=== PATIENT | male | born 1960 | race Caucasian/White ===

== ENCOUNTER 2022-01-02 16:44 | Inpatient (IN) | payer OTHER ==
[2022-01-02 17:33] VITALS: BMI 30.2
[2022-01-02] MEDS ORDERED: NICOTINE 10 MG CARTRIDGE (INHALER) IH PRN (19:43)
[2022-01-02] MEDS ORDERED: ACETAMINOPHEN 325 MG TABLET (FP) PO PRN (19:43)
[2022-01-02] MEDS ORDERED: methaDONE HCL 10 MG TABLET (FOR DETOX USE ONLY) PO ONE (19:43)
[2022-01-02] MEDS ORDERED: cloNIDine HCL 0.1 MG TABLET PO PRN (19:43)
[2022-01-02] MEDS ORDERED: ONDANSETRON *ODT* 4 MG TABLET SL PRN (19:43)
[2022-01-02] MEDS ORDERED: MAGNESIUM HYDROX 2400MG/30ML ORAL SUSPENSION 30 ML CUP PO PRN (19:43)
[2022-01-02] MEDS ORDERED: IBUPROFEN 600 MG TABLET (FP) PO PRN (19:43)
[2022-01-02] MEDS ORDERED: MAG HYDROX/AL HYDROX/SIMETH 30 ML UNIT-DOSE CUP PO PRN (19:43)
[2022-01-02] MEDS ORDERED: DICYCLOMINE HCL 10 MG CAPSULE PO PRN (19:43)
[2022-01-02] MEDS ORDERED: IBUPROFEN 400 MG TABLET (FP) PO PRN (19:43)
[2022-01-02] MEDS ORDERED: BISMUTH SUBSALICYLATE 524 MG/30 ML PO PRN (19:43)
[2022-01-02] MEDS ORDERED: LOPERAMIDE HCL 2 MG CAPSULE PO PRN (19:43)
[2022-01-02] MEDS ORDERED: MAGNESIUM CITRATE 300 ML BOTTLE PO PRN (19:43)
[2022-01-02] MEDS ORDERED: BENZOCAINE/MENTHOL (CHLORASEPTIC ) LOZENGE MM PRN (19:43)
[2022-01-02] MEDS: THIAMINE HCL 100 MG TABLET (FP) PO SCH (21:16)
[2022-01-02] MEDS: METHOCARBAMOL 500 MG TABLET PO PRN (21:16)
[2022-01-02] MEDS: PRENATAL VITAMINS W/ FOLIC ACID TABLET (FP) PO SCH (21:17)
[2022-01-02] MEDS: hydrOXYzine PAMOATE 25 MG CAPSULE (FP) PO SCH (21:17)
[2022-01-03] MEDS: MELATONIN 5 MG TABLETS PO SCH ×2 (00:11→22:53)
[2022-01-03] MEDS: hydrOXYzine PAMOATE 25 MG CAPSULE (FP) PO SCH ×5 (05:10→23:57)
[2022-01-03] MEDS: PRENATAL VITAMINS W/ FOLIC ACID TABLET (FP) PO SCH (10:49)
[2022-01-03 14:34] LABS: HEMATOCRIT 24.8 % (35.4-49); HEMOGLOBIN 8.1 GM/dL (11.7-16.9); MCH 27.8 pg (25.7-33.7); MCHC 32.4 g/dl (32.0-35.9); MEAN CELL VOLUME 85.8 fl (80-96); PLATELET COUNT 465 10^3/uL (134-434); RBC 2.89 M/mm3 (4.00-5.60); WHITE BLOOD COUNT 7.9 K/mm3 (4.0-10.0)
[2022-01-03 15:14] LABS: CREATININE 0.7 mg/dL (0.55-1.3)
[2022-01-03 15:18] LABS: ALBUMIN 2.6 g/dl (3.4-5.0); BLOOD UREA NITROGEN 14.4 mg/dL (7-18); CALCIUM 7.9 mg/dL (8.5-10.1); TOT PROT 6.3 g/dl (6.4-8.2)
[2022-01-03 15:20] LABS: BILIRUBIN,TOTAL 0.2 mg/dL (0.2-1)
[2022-01-03] MEDS: FERROUS SO4 325 MG TABLET (FP) PO SCH (18:30)
[2022-01-03] MEDS: THIAMINE HCL 100 MG TABLET (FP) PO SCH (22:52)
[2022-01-04] MEDS: hydrOXYzine PAMOATE 25 MG CAPSULE (FP) PO SCH ×5 (05:36→22:25)
[2022-01-04] MEDS: FERROUS SO4 325 MG TABLET (FP) PO SCH ×3 (07:51→18:05)
[2022-01-04] MEDS ORDERED: methaDONE HCL 10 MG TABLET (FOR DETOX USE ONLY) PO ONE (10:00)
[2022-01-04] MEDS: PRENATAL VITAMINS W/ FOLIC ACID TABLET (FP) PO SCH (10:40)
[2022-01-04] MEDS: METHOCARBAMOL 500 MG TABLET PO PRN (10:41)
[2022-01-04] MEDS: MELATONIN 5 MG TABLETS PO SCH (22:25)
[2022-01-04] MEDS: THIAMINE HCL 100 MG TABLET (FP) PO SCH (22:25)
[2022-01-04] MEDS: P-EPHED 60MG/TRIPROLIDI 2.5MG TABLET PO PRN (22:25)
[2022-01-05] MEDS: P-EPHED 60MG/TRIPROLIDI 2.5MG TABLET PO PRN ×3 (06:06→22:36)
[2022-01-05] MEDS: hydrOXYzine PAMOATE 25 MG CAPSULE (FP) PO SCH ×5 (06:06→22:37)
[2022-01-05] MEDS: FERROUS SO4 325 MG TABLET (FP) PO SCH ×3 (07:16→17:58)
[2022-01-05] MEDS: PRENATAL VITAMINS W/ FOLIC ACID TABLET (FP) PO SCH (10:47)
[2022-01-05] MEDS: ACETAMINOPHEN 325 MG TABLET (FP) PO PRN (14:29)
[2022-01-05] MEDS: METHOCARBAMOL 500 MG TABLET PO PRN ×2 (14:29→22:37)
[2022-01-05 21:29] VITALS: RESP 18
[2022-01-05] MEDS: MELATONIN 5 MG TABLETS PO SCH (22:37)
[2022-01-05] MEDS: THIAMINE HCL 100 MG TABLET (FP) PO SCH (22:37)
[2022-01-06] MEDS: hydrOXYzine PAMOATE 25 MG CAPSULE (FP) PO SCH ×4 (06:51→18:11)
[2022-01-06] MEDS: FERROUS SO4 325 MG TABLET (FP) PO SCH ×3 (07:11→18:11)
[2022-01-06] MEDS ORDERED: methaDONE HCL 10 MG TABLET (FOR DETOX USE ONLY) PO ONE (10:00)
[2022-01-06] MEDS: PRENATAL VITAMINS W/ FOLIC ACID TABLET (FP) PO SCH (10:54)
[2022-01-06] MEDS: ACETAMINOPHEN 325 MG TABLET (FP) PO PRN (10:56)
[2022-01-06 19:56] VITALS: BP 131/83; PULSE 105; TEMP 98.6
== END 2022-01-06 20:08 | disposition home or self-care (01) | DRG 773 ==
LOC: YASAS 16:44 → SUATTDRO 16:44 → Y6N 20:10
PROVIDERS: ADMIT Allergy & Immunology; ATTEND Surgery
PROC: HZ2ZZZZ Detoxification Services for Substance Abuse Treatment (ICD-10-PCS; principal; 2022-01-02)
DX: F11.23 Opioid dependence with withdrawal (principal); F14.20 Cocaine dependence, uncomplicated; F17.210 Nicotine dependence, cigarettes, uncomplicated; R09.81 Nasal congestion; R26.2 Difficulty in walking, not elsewhere classified; Z99.89 Dependence on other enabling machines and devices
CPT/HCPCS: 36415; 71045-TC-FY; 80053; 82607; 82746; 83540; 83550; 85027; 86780; 87811; C9803-CS; U0003; U0005